=== PATIENT | female | born 1975 | race Caucasian/White ===

== ENCOUNTER 2018-01-24 14:35 | Emergency (ER) | payer MEDICAID, OTHER ==
[~2018-01-24] VITALS: Ht 152.4 cm; Wt 76.0 kg
[2018-01-24 15:05] LABS: BASOPHILS % (AUTO) 0.6 % (0-1); EOSINOPHILS # (AUTO) 0.1 X10'3 (0-0.9); EOSINOPHILS % (AUTO) 1.5 % (0-6); HEMATOCRIT 39.6 % (35.0-45.0); HEMOGLOBIN 13.5 g/dl (12.0-16.0); LYMPHOCYTES # (AUTO) 2.2 X10'3 (1.1-4.8); LYMPHOCYTES % (AUTO) 37.1 % (21-51); MEAN CORPUSCULAR HEMOGLOBIN 31.9 PG (27.0-31.0); MEAN CORPUSCULAR HGB CONC 34.1 % (33.0-36.5); MEAN CORPUSCULAR VOLUME 93.4 FL (78-98); MEAN PLATELET VOLUME 7.3 FL (7.4-10.4); MONOCYTES # (AUTO) 0.4 X10'3 (0-0.9); MONOCYTES % (AUTO) 6.2 % (2-12); NEUTROPHILS # (AUTO) 3.3 X10'3 (1.8-7.7); NEUTROPHILS % (AUTO) 54.6 % (42-75); PLATELET COUNT 288 X10'3 (140-440); RED BLOOD COUNT 4.23 X10'6 (4.20-5.60); RED CELL DISTRIBUTION WIDTH 15.2 % (11.5-14.5)
[2018-01-24 15:30] LABS: HCG SERUM QL NEGATIVE
[2018-01-24 15:45] VITALS: BP 116/84
== END 2018-01-24 15:47 | disposition home or self-care (01) ==
LOC: ER 14:37
DX: N93.8 Other specified abnormal uterine and vaginal bleeding (principal); F15.10 Other stimulant abuse, uncomplicated; F17.200 Nicotine dependence, unspecified, uncomplicated; Z98.51 Tubal ligation status; Z56.0 Unemployment, unspecified; Z85.41 Personal history of malignant neoplasm of cervix uteri
CPT/HCPCS: 36415; 84703; 85025; 85610; 99284; A6449

== ENCOUNTER 2022-08-24 08:19 | Emergency (ER) | payer MEDICAID ==
[~2022-08-24] VITALS: Ht 154.9 cm; Wt 110.9 kg
[2022-08-24 08:34] VITALS: BP 154/89
== END 2022-08-24 10:40 | disposition home or self-care (01) ==
LOC: ER 08:20
DX: J02.9 Acute pharyngitis, unspecified (principal)
CPT/HCPCS: 99281

== ENCOUNTER 2024-03-05 09:30 | Emergency (ER) | payer MEDICAID ==
[~2024-03-05] VITALS: Ht 154.9 cm; Wt 105.5 kg
[2024-03-05 09:40] VITALS: BP 136/93; PULSE 102; TEMP 98; O2SAT 98
[2024-03-05] MEDS ORDERED: NAPR-996 PO (10:36)
[2024-03-05] MEDS: ketorolac trometh. 30mg/ml inj. IM ONE (10:40)
[2024-03-05 10:47] VITALS: RESP 18
== END 2024-03-05 10:50 | disposition home or self-care (01) ==
LOC: ER 09:31
DX: M25.561 Pain in right knee (principal); G89.29 Other chronic pain; M54.50 Low back pain, unspecified; J44.9 Chronic obstructive pulmonary disease, unspecified; F15.90 Other stimulant use, unspecified, uncomplicated; Z98.890 Other specified postprocedural states; Z72.89 Other problems related to lifestyle; Z98.51 Tubal ligation status; Z56.0 Unemployment, unspecified
CPT/HCPCS: 29505; 73564; 96372; 99284; J1885

== ENCOUNTER 2024-09-09 10:56 | Emergency (ER) | payer MEDICAID ==
[~2024-09-09] VITALS: Ht 154.9 cm; Wt 90.5 kg
[~2024-09-09 10:56] MED LIST: NAPR-996 PO
[2024-09-09] MEDS: LIDOcaine 1% W/epiNEPHrine 1:100,000 20ml vial IJ ONE (12:44)
[2024-09-09] MEDS ORDERED: SULF1TAB49 PO (12:54)
[2024-09-09 12:57] VITALS: BP 130/76; PULSE 76; RESP 16; TEMP 98.6; O2SAT 99
== END 2024-09-09 13:00 | disposition home or self-care (01) ==
LOC: ER 10:56
DX: L02.11 Cutaneous abscess of neck (principal); J44.9 Chronic obstructive pulmonary disease, unspecified; F15.90 Other stimulant use, unspecified, uncomplicated; G89.29 Other chronic pain; M54.9 Dorsalgia, unspecified; Z98.51 Tubal ligation status; Z56.0 Unemployment, unspecified; Z72.89 Other problems related to lifestyle
CPT/HCPCS: 10060; 87070; 87077; 87186; 99283; A6449